=== PATIENT | female | born 1935 | race Caucasian/White ===

== ENCOUNTER 2017-10-10 09:13 | Day surgery (SDC) | payer MEDICARE ==
[2017-10-09 11:15] LABS: ASPARTATE AMINO TRANSFERASE 15 U/L (15-37); BLOOD UREA NITROGEN 20 mg/dL (7-18)
[~2017-10-10] VITALS: Ht 162.6 cm; Wt 63.9 kg
[~2017-10-10 09:13] MED LIST: ALEN70TA3 PO; ALLO300T PO; AMLO5TAB4 PO; CA C1TAB28 PO; CALC600T4 PO; CARV12.52 PO; CHOL200024 PO; FERR325T18 PO; FURO40TA6 PO; LOSA100T2 PO; LOSA1TAB12 PO; LOSA1TAB22 PO; LOSA50TA2 PO; MAGN250T8 PO; MAGNESIUM 250MG; MELO7.5T5 PO; METO25TA35 PO; MULT-658 PO; OMEG500C PO; PIRO20CA2 PO; POTA20PA PO; VIT D; WARF5TAB PO
[2017-10-10 09:48] VITALS: BP 137/82
[2017-10-10] MEDS ORDERED: FENTANYL PF 100 MCG/2ML ONE (11:56)
[2017-10-10] MEDS ORDERED: ALBUTEROL SULFATE 2.5 MG/3 ML NPPB PRN (12:00)
[2017-10-10] MEDS ORDERED: EPHEDRINE 50 MG/ML, 1ML IVPush PRN (12:00)
[2017-10-10] MEDS ORDERED: OXYcodone 5 MG/5 ML ORAL.SOL UDC PO PRN (12:00)
[2017-10-10] MEDS ORDERED: FENTANYL PF 100 MCG/2ML IV PRN (12:00)
[2017-10-10] MEDS ORDERED: ONDANSETRON 2MG/ML, 2ML IVPush PRN (12:00)
[2017-10-10] MEDS ORDERED: HYDROcodone/APAP 7.5-325MG/15ML UDC PO PRN (12:00)
[2017-10-10] MEDS ORDERED: hydrALAzine 20 MG/ML, 1ML IV PRN (12:00)
[2017-10-10] MEDS ORDERED: ACETAMINOPHEN 325 MG TABLET PO PRN (12:00)
[2017-10-10] MEDS ORDERED: METOPROLOL 1 MG/ML, 5ML IV PRN (12:00)
[2017-10-10] MEDS ORDERED: PROMETHAZINE 25 MG/ML, 1ML IV PRN (12:00)
[2017-10-10] MEDS ORDERED: LABETALOL 5MG/ML, 20ML IV PRN (12:00)
[2017-10-10] MEDS ORDERED: HYDROmorphone 1 MG/ML, 1ML IV PRN (12:00)
[2017-10-10] MEDS ORDERED: CIPROFLOXACIN/PMX 400MG/200ML 200 ML ONE (12:04)
[2017-10-10] MEDS ORDERED: METOPROLOL 1 MG/ML, 5ML ONE (12:39)
[2017-10-10] MEDS ORDERED: PROPOFOL 10 MG/ML, 20ML ONE ×2 (12:39)
[2017-10-10] MEDS ORDERED: ROCURONIUM 10 MG/ML,10ML ONE (12:39)
[2017-10-10] MEDS ORDERED: SUCCINYLCHOLINE 20 MG/ML, 10ML ONE (12:40)
[2017-10-10] MEDS ORDERED: DEXAMETHASONE 4 MG/ML, 1ML ONE (12:42)
[2017-10-10] MEDS ORDERED: ONDANSETRON 2MG/ML, 2ML ONE (12:42)
[2017-10-10 13:44] LABS: ENDOSCOPY QUESTIONNAIRE RECEIVED; ESOPHAGOGASTRODUODENOSCOPY RECEIVED
== END 2017-10-10 15:00 ==
LOC: OUT 09:13
PROVIDERS: ATTEND Internal Medicine
DX: K86.2 Cyst of pancreas (principal); K21.0 Gastro-esophageal reflux disease with esophagitis; K28.9 Gastrojejunal ulcer, unspecified as acute or chronic, without hemorrhage or perforation; Z88.0 Allergy status to penicillin; I10 Essential (primary) hypertension
CPT/HCPCS: 36415; 43239; 43242; 80053; 88305; 93005; J0330; J0744; J1100; J2405; J2704; J3010

== ENCOUNTER → 2018-07-11 | Outpatient (CLI) | payer MEDICARE ==
[~2018-07-11] MED LIST changes: +OMNIPAQUE 350 MG/ML, 100ML BOTTLE ONE; -POTA20PA PO; +POTA20PA31 PO
== END | disposition home or self-care (01) ==
LOC: RAD 10:41 → EDSTATUS 12:00
PROVIDERS: ATTEND Internal Medicine Geriatric Medicine
DX: K86.2 Cyst of pancreas (principal); K76.0 Fatty (change of) liver, not elsewhere classified; K80.20 Calculus of gallbladder without cholecystitis without obstruction; I70.0 Atherosclerosis of aorta; Z86.718 Personal history of other venous thrombosis and embolism; Z85.42 Personal history of malignant neoplasm of other parts of uterus; Z87.891 Personal history of nicotine dependence
CPT/HCPCS: 74170; Q9967

== ENCOUNTER 2019-05-28 11:18 | Inpatient (IN) | payer MEDICARE ==
[~2019-05-28] VITALS: Ht 165.1 cm; Wt 65.4 kg
[2019-06-04 13:40] VITALS: BP 147/72
== END 2019-06-04 18:50 | disposition home or self-care (01) | DRG 388 ==
LOC: ED 13:51 → EDIP 14:37 → 4NOR 16:22
PROVIDERS: ADMIT Internal Medicine; ATTEND Internal Medicine
PROC: 0D9670Z Drainage of Stomach with Drainage Device, Via Natural or Artificial Opening (ICD-10-PCS; principal; 2019-05-28)
DX: K56.52 Intestinal adhesions [bands] with complete obstruction (principal); N17.0 Acute kidney failure with tubular necrosis; E87.2 Acidosis; E87.1 Hypo-osmolality and hyponatremia; E87.0 Hyperosmolality and hypernatremia; N39.0 Urinary tract infection, site not specified; E83.39 Other disorders of phosphorus metabolism; D72.825 Bandemia; E83.42 Hypomagnesemia; E86.0 Dehydration; E87.6 Hypokalemia; E88.09 Other disorders of plasma-protein metabolism, not elsewhere classified; I12.9 Hypertensive chronic kidney disease with stage 1 through stage 4 chronic kidney disease, or unspecified chronic kidney disease; K80.20 Calculus of gallbladder without cholecystitis without obstruction; K86.9 Disease of pancreas, unspecified; N18.3 Chronic kidney disease, stage 3 (moderate); Z79.899 Other long term (current) drug therapy; Z87.19 Personal history of other diseases of the digestive system; Z87.11 Personal history of peptic ulcer disease; Z90.81 Acquired absence of spleen; Z90.710 Acquired absence of both cervix and uterus
CPT/HCPCS: 36415; 71045; 74018; 74177; 74250; 80053; 81001; 81003; 83605; 83690; 83735; 84100; 85025; 87077; 87086; 87186; 93005; 96360; 99285; G0378; J0696; J1644; J2405; J3480; J3475; J7030; J7120

== ENCOUNTER 2019-07-29 11:06 | Outpatient (CLI) | payer MEDICARE ==
[~2019-07-29 11:06] MED LIST changes: +CEFD300C37 PO; -OMNIPAQUE 350 MG/ML, 100ML BOTTLE ONE
[2019-07-29] MEDS ORDERED: CYAN1TAB29 PO (11:53)
[2019-07-29] MEDS ORDERED: OMEP40CA6 PO (11:53)
[2019-07-29] MEDS ORDERED: TRAM50TA2 PO (11:53)
== END 2019-07-29 23:59 | disposition home or self-care (01) ==
LOC: STAR 11:06
PROVIDERS: ATTEND Internal Medicine
DX: Z02.9 Encounter for administrative examinations, unspecified (principal)

== ENCOUNTER 2020-07-09 12:40 | Emergency (ER) | payer MEDICARE ==
[~2020-07-09] VITALS: Ht 165.1 cm; Wt 63.9 kg
[~2020-07-09 12:40] MED LIST changes: -CALC600T4 PO; +CALC600T60 PO; +CYAN1TAB29 PO; +OMEP40CA42 PO; +TRAM50TA2 PO; -WARF5TAB PO; +WARF5TAB2 PO
--- NOTE | 2020-07-09 13:06 | NUR ---
PATIENT WALKED BACK FROM TRIAGE WITH CHIEF C/O LOW HR. PATIENT STATES SHE WOKE UP 2X LAST NIGHT AND FELT LIGHT HEADED, AND FELT DIZZY THIS MORNING WHEN WAKING UP. PATIENT CHECKED HER PULSE AT HOME WITH PULSE OX AND HR WAS BETWEEN 30-50 LOWEST HR READING WAS 28. PATIENT DENIES ANY CHEST PAIN OR OTHER SYMPTOMS, SHE DOES NOT FEEL DIZZY OR LIGHT HEADED AT THIS TIME. SPOUSE AT BEDSIDE, CONNECTED TO [employer], HR READING IS 50S, BP 179/65, NO ACUTE SIGNS OF DISTRESS, CALL LIGHT WITHIN REACH.
--- NOTE | 2020-07-09 14:07 | NUR ---
PATIENT TO IMAGING.
[2020-07-09 14:19] LABS: BASOPHILS # (AUTO) 0.03 x10^3/uL (0-0.1); BASOPHILS % (AUTO) 0 % (0-1); EOSINOPHILS # (AUTO) 0.14 x10^3/uL (0-0.4); EOSINOPHILS % (AUTO) 1 % (1-7); LYMPHOCYTES # (AUTO) 3.37 x10^3/uL (1-3.4); LYMPHOCYTES % (AUTO) 32 % (22-44); MD NO; MEAN CORPUSCULAR HEMOGLOBIN 31.7 pg (27.0-34.8); MEAN CORPUSCULAR HGB CONC 32.6 g/dL (32.4-35.8); MEAN PLATELET VOLUME 8.8 fL (7.4-10.4); MONOCYTES # (AUTO) 1.22 x10^3/uL (0.2-0.8); MONOCYTES % (AUTO) 11 % (2-9); NEUTROPHILS # (AUTO) 5.93 x10^3/uL (1.8-6.8); NEUTROPHILS % (AUTO) 56 % (42-75); PLATELET COUNT 319 x10^3/uL (130-400); RED BLOOD COUNT 4.23 x10^6/uL (3.82-5.3); RED CELL DISTRIBUTION WIDTH 13.4 % (9.6-15.2)
[2020-07-09 14:25] LABS: ALANINE AMINOTRANSFERASE 13 U/L (12-78); ALBUMIN 3.4 g/dL (3.4-5.0); ANION GAP 9 mmol/L (5-15); CALCIUM 8.9 mg/dL (8.5-10.1); CHLORIDE 96 mmol/L (98-107); CREATININE 1.05 mg/dL (0.55-1.02)
[2020-07-09 14:33] LABS: ALKALINE PHOSPHATASE 80 U/L (45-117); BILIRUBIN,TOTAL 0.5 mg/dL (0.2-1.0); TROPONIN I < 0.015 ng/mL (0.000-0.045)
--- NOTE | 2020-07-09 15:06 | NUR ---
PATIENT SITTING IN GURNEY,SPOUSE AT BEDSIDE, NO ACUTE SIGNS OF DISTRESS, CALL LIGHT WITHIN REACH, NO FURTHER NEEDS AT THIS TIME.
[2020-07-09 15:54] VITALS: BP 149/98
--- NOTE | 2020-07-09 16:12 | NUR ---
Patient and spouse given discharge instructions and they have confirmed that they understand the instructions, no questions asked. Patient ambulatory with use of cane to discharge desk.
== END 2020-07-09 16:13 | disposition home or self-care (01) ==
LOC: ED 14:28
DX: I49.1 Atrial premature depolarization (principal); R07.89 Other chest pain; R00.8 Other abnormalities of heart beat; I10 Essential (primary) hypertension; K21.9 Gastro-esophageal reflux disease without esophagitis; Z88.0 Allergy status to penicillin; Z90.81 Acquired absence of spleen; Z90.710 Acquired absence of both cervix and uterus; Z79.899 Other long term (current) drug therapy; Z87.891 Personal history of nicotine dependence; Z86.718 Personal history of other venous thrombosis and embolism
CPT/HCPCS: 36415; 71046; 80053; 84484; 85025; 93005; 99285